=== PATIENT | male | born 1960 | race Two or more races ===

== ENCOUNTER → 2020-04-30 | Outpatient (CLI) | payer OTHER ==
[~2020-04-30] MED LIST: ASPI81TA45 PO; LISI1TAB20 PO
[2020-04-30 11:26] LABS: BASOPHILS % (AUTO) 0 % (0-1); EOSINOPHILS % (AUTO) 2 % (1-7); LYMPHOCYTES % (AUTO) 25 % (22-44); MEAN CORPUSCULAR HEMOGLOBIN 31.6 pg (27.5-34.5); MEAN CORPUSCULAR HGB CONC 34.1 g/dL (33.2-36.2); MEAN PLATELET VOLUME 8.5 fL (7.4-10.4); MONOCYTES % (AUTO) 10 % (2-9); NEUTROPHILS % (AUTO) 62 % (42-75); PLATELET COUNT 236 x10^3/uL (130-400); RED BLOOD COUNT 5.17 x10^6/uL (4.38-5.82); RED CELL DISTRIBUTION WIDTH 13.5 % (9.4-14.8)
[2020-04-30 11:30] LABS: INTERNATIONAL NORMALIZED RATIO 0.98 (0.93-1.1); MD NO; PROTHROMBIN TIME 10.1 Seconds (9.6-11.5)
[2020-04-30 11:32] LABS: ALANINE AMINOTRANSFERASE 23 U/L (12-78); ALBUMIN 4.2 g/dL (3.4-5.0); ANION GAP 3 mmol/L (5-15); CALCIUM 9.5 mg/dL (8.5-10.1); CHLORIDE 103 mmol/L (98-107)
[2020-04-30 11:34] LABS: ALKALINE PHOSPHATASE 113 U/L (45-117); BILIRUBIN,TOTAL 0.5 mg/dL (0.2-1.0); CREATININE 1.09 mg/dL (0.7-1.3); TOTAL PROTEIN 7.9 g/dL (6.4-8.2)
== END | disposition home or self-care (01) ==
LOC: STAR 10:25
PROVIDERS: ATTEND Neurological Surgery
DX: Z01.818 Encounter for other preprocedural examination (principal); M48.061 Spinal stenosis, lumbar region without neurogenic claudication
CPT/HCPCS: 36415; 80053; 85025; 85610; 85730; 93005

== ENCOUNTER 2020-05-08 05:25 | Observation (INO) | payer OTHER ==
[~2020-05-08] VITALS: Ht 167.6 cm; Wt 74.0 kg
[2020-05-08] MEDS ORDERED: CHLORHEXIDINE 15 ML UDC ONE (06:17)
[2020-05-08] MEDS ORDERED: LIDOCAINE-MPF 1%, 2ML INFIL ONE (06:30)
[2020-05-08] MEDS ORDERED: LACTATED RINGERS 1,000 ML IV SCH (06:30)
[2020-05-08] MEDS ORDERED: CHLORHEXIDINE 15 ML UDC MM ONE (06:30)
[2020-05-08] MEDS ORDERED: VANCOMYCIN 1,000 MG ONE (06:45)
[2020-05-08] MEDS ORDERED: EPINEPHRINE 1 MG/ML, 1ML ONE (06:45)
[2020-05-08] MEDS ORDERED: BACITRACIN 50,000 UNIT ONE (06:45)
[2020-05-08] MEDS ORDERED: BUPIVACAINE/PF 0.5% ONE (06:45)
[2020-05-08] MEDS ORDERED: methylPREDNISolone *ACETATE* 40 MG/ML ONE (06:45)
[2020-05-08] MEDS ORDERED: MIDAZOLAM 1 MG/ML, 2ML ONE (07:19)
[2020-05-08] MEDS ORDERED: FENTANYL PF 250 MCG/5ML ONE (07:19)
[2020-05-08] MEDS ORDERED: LIDOCAINE GEL 2%, 5ML ONE (07:22)
[2020-05-08] MEDS ORDERED: LABETALOL 5MG/ML, 20ML IV PRN (07:30)
[2020-05-08] MEDS ORDERED: HYDROmorphone 1 MG/ML, 1ML INJ IVPush PRN (07:30)
[2020-05-08] MEDS ORDERED: HALOPERIDOL 5 MG/ML IV PRN (07:30)
[2020-05-08] MEDS ORDERED: HYDROcodone/APAP 7.5-325MG/15ML UDC PO PRN (07:30)
[2020-05-08] MEDS ORDERED: MEPERIDINE/PF 25MG/0.5ML IVPush PRN (07:30)
[2020-05-08] MEDS ORDERED: PROMETHAZINE 25 MG/ML, 1ML IVPush PRN (07:30)
[2020-05-08] MEDS ORDERED: DIPHENHYDRAMINE 50 MG/ML, 1ML IVPush PRN (07:30)
[2020-05-08] MEDS ORDERED: hydrALAzine 20 MG/ML, 1ML IV PRN (07:30)
[2020-05-08] MEDS ORDERED: SUCCINYLCHOLINE 20 MG/ML, 10ML ONE (07:42)
[2020-05-08] MEDS ORDERED: DEXAMETHASONE 4 MG/ML, 1ML ONE (07:42)
[2020-05-08] MEDS ORDERED: GLYCOPYRROLATE 0.2MG/1ML, 5ML ONE (07:42)
[2020-05-08] MEDS ORDERED: NEOSTIGMINE 1 MG/ML, 10ML ONE (07:42)
[2020-05-08] MEDS ORDERED: ROCURONIUM 10 MG/ML,10ML ONE (07:42)
[2020-05-08] MEDS ORDERED: ONDANSETRON 2MG/ML, 2ML ONE (07:42)
[2020-05-08] MEDS ORDERED: CEFAZOLIN 1,000 MG ONE (07:42)
[2020-05-08] MEDS ORDERED: PROPOFOL 10 MG/ML, 20ML ONE (07:42)
[2020-05-08] MEDS ORDERED: morphine SULFATE 10 MG/ML, 1ML IVPush PRN (09:30)
[2020-05-08] MEDS ORDERED: OXYcodone/APAP 5/325MG TABLET PO PRN (09:30)
[2020-05-08] MEDS ORDERED: OXYcodone 5 MG/5 ML ORAL.SOL UDC ONE (09:31)
[2020-05-08] MEDS ORDERED: HYDROmorphone 1 MG/ML, 1ML INJ ONE (09:31)
[2020-05-08] MEDS ORDERED: FENTANYL PF 100 MCG/2ML ONE (09:31)
[2020-05-08] MEDS ORDERED: MAGNESIUM HYDROXIDE 8%, 30ML UDC PO PRN (10:00)
[2020-05-08] MEDS: FENTANYL PF 100 MCG/2ML IV PRN ×2 (10:02→10:22)
[2020-05-08] MEDS ORDERED: OXYcodone 5 MG/5 ML ORAL.SOL UDC PO ONE (10:30)
[2020-05-08 11:00] VITALS: BP 121/76
[2020-05-08] MEDS ORDERED: NS + 20MEQ KCL 1,000 ML IV ONE (11:45)
[2020-05-08] MEDS ORDERED: PHARMACY MAY ADJ FOR RENAL FX MC PRN (12:00)
[2020-05-08 12:10] VITALS: BP 111/70
[2020-05-08] MEDS: ACETAMINOPHEN 500 MG TABLET PO SCH ×2 (12:14→17:21)
[2020-05-08] MEDS ORDERED: LABETALOL 5MG/ML, 20ML IVPush PRN (12:30)
[2020-05-08] MEDS ORDERED: SENNA/DOCUSATE TABLET PO PRN (12:30)
[2020-05-08] MEDS ORDERED: PROMETHAZINE 25 MG/ML, 1ML IM PRN (12:30)
[2020-05-08] MEDS ORDERED: ONDANSETRON 2MG/ML, 2ML IVPush PRN (12:30)
[2020-05-08] MEDS ORDERED: DIPHENHYDRAMINE 50 MG CAPSULE PO PRN (12:30)
[2020-05-08] MEDS ORDERED: BISACODYL 10 MG SUPP PR PRN (12:30)
[2020-05-08] MEDS: CYCLOBENZAPRINE 10 MG TABLET PO SCH ×2 (12:43→19:54)
[2020-05-08] MEDS: CEFAZOLIN PMX 1GM/50ML 50 ML IVPB SCH (15:18)
[2020-05-08 19:08] VITALS: BP 121/76
[2020-05-09] MEDS: ACETAMINOPHEN 500 MG TABLET PO SCH ×4 (00:30→18:01)
[2020-05-09] MEDS: CEFAZOLIN PMX 1GM/50ML 50 ML IVPB SCH (00:32)
[2020-05-09 01:35] VITALS: BP 112/66
[2020-05-09] MEDS: CYCLOBENZAPRINE 10 MG TABLET PO SCH ×3 (04:15→21:05)
[2020-05-09 04:59] LABS: BASOPHILS % (AUTO) 0 % (0-1); EOSINOPHILS % (AUTO) 0 % (1-7); LYMPHOCYTES % (AUTO) 10 % (22-44); MEAN CORPUSCULAR HEMOGLOBIN 31.3 pg (27.5-34.5); MEAN CORPUSCULAR HGB CONC 33.8 g/dL (33.2-36.2); MEAN PLATELET VOLUME 8.6 fL (7.4-10.4); MONOCYTES % (AUTO) 9 % (2-9); NEUTROPHILS % (AUTO) 81 % (42-75); PLATELET COUNT 199 x10^3/uL (130-400); RED BLOOD COUNT 4.41 x10^6/uL (4.38-5.82); RED CELL DISTRIBUTION WIDTH 13.3 % (9.4-14.8)
[2020-05-09 05:04] LABS: MD NO
[2020-05-09 05:07] LABS: ANION GAP 4 mmol/L (5-15); CALCIUM 8.3 mg/dL (8.5-10.1); CHLORIDE 107 mmol/L (98-107); CREATININE 0.87 mg/dL (0.7-1.3)
[2020-05-09 06:52] VITALS: BP 109/77
[2020-05-09] MEDS: LISINOPRIL 20 MG TABLET PO SCH (08:18)
[2020-05-09] MEDS: HYDROCHLOROTHIAZIDE 25 MG TABLET PO SCH (08:18)
[2020-05-09] MEDS ORDERED: TEMPLATE NON-FORMULARY MED. (Lisinopril/Hydrochlorothiazide** (Lisinopril-Hctz 20-25 Mg Ta PO SCH (09:00)
[2020-05-09 12:49] VITALS: BP 110/73
[2020-05-09 21:22] VITALS: BP 106/72
[2020-05-10] MEDS: ACETAMINOPHEN 500 MG TABLET PO SCH ×3 (00:46→12:34)
[2020-05-10 00:47] VITALS: BP 101/66
[2020-05-10] MEDS: CYCLOBENZAPRINE 10 MG TABLET PO SCH ×2 (04:06→12:34)
[2020-05-10 05:25] LABS: BASOPHILS % (AUTO) 1 % (0-1); EOSINOPHILS % (AUTO) 3 % (1-7); LYMPHOCYTES % (AUTO) 21 % (22-44); MEAN CORPUSCULAR HEMOGLOBIN 31.4 pg (27.5-34.5); MEAN CORPUSCULAR HGB CONC 33.6 g/dL (33.2-36.2); MEAN PLATELET VOLUME 8.6 fL (7.4-10.4); MONOCYTES % (AUTO) 10 % (2-9); NEUTROPHILS % (AUTO) 66 % (42-75); PLATELET COUNT 188 x10^3/uL (130-400); RED BLOOD COUNT 4.39 x10^6/uL (4.38-5.82); RED CELL DISTRIBUTION WIDTH 13.6 % (9.4-14.8)
[2020-05-10 05:29] LABS: ANION GAP 7 mmol/L (5-15); CALCIUM 8.7 mg/dL (8.5-10.1); CHLORIDE 106 mmol/L (98-107)
[2020-05-10 05:30] LABS: CREATININE 1.04 mg/dL (0.7-1.3)
[2020-05-10 05:53] LABS: MD NO
[2020-05-10 07:13] VITALS: BP 97/62
[2020-05-10] MEDS ORDERED: CYCL-259 PO (08:54)
[2020-05-10] MEDS ORDERED: OXYC-302 PO (08:56)
[2020-05-10] MEDS: HYDROCHLOROTHIAZIDE 25 MG TABLET PO SCH (09:15)
[2020-05-10] MEDS: LISINOPRIL 20 MG TABLET PO SCH (09:15)
== END 2020-05-10 13:07 | disposition home or self-care (01) ==
LOC: OUT 05:25 → ORIP 09:30 → 3WST 11:00 → DCLOUNGE 05-10 12:56
PROVIDERS: ADMIT Neurological Surgery; ATTEND Neurological Surgery
DX: M47.26 Other spondylosis with radiculopathy, lumbar region (principal); Z20.828 Contact with and (suspected) exposure to other viral communicable diseases; M48.062 Spinal stenosis, lumbar region with neurogenic claudication; I10 Essential (primary) hypertension; Z87.891 Personal history of nicotine dependence; Z79.899 Other long term (current) drug therapy; Z86.73 Personal history of transient ischemic attack (TIA), and cerebral infarction without residual deficits
CPT/HCPCS: 36415; 63047; 63048; 72100; 80048; 85025; 86850; 86900; 87635; 96361; 96365; 96366; 97116; 97161; 97165; C1729; G0378; J0171; J0330; J0690; J1100; J1170; J2250; J2405; J2704; J2710; J3010; J3480; J7120; S0020; J3370; J1030